=== PATIENT | male | born 1990 | race African-American/Black ===

== ENCOUNTER 2018-12-31 15:24 | Emergency (ER) | payer OTHER ==
--- NOTE | 2018-12-31 18:03 | EDM.PDOC ---
ED HPI GENERAL MEDICAL PROBLEM - General Chief Complaint: Head Injury Stated Complaint: FELL 15 FT AT WORK Time Seen by Provider: 12/31/18 17:47 Source of Information: Reports: Patient, Other (Manager Meeting) History Limitations: Reports: No Limitations - History of Present Illness INITIAL COMMENTS - FREE TEXT/NARRATIVE: Mr. Champion is a pleasant 28-year-old man with no past medical or surgical history , who states that he was standing next to a hill, when the ground gave way, causing him to fall 10 feet straight down, then another roll another 15 feet downhill. He was on the job at the time. When he initially fell, he landed on his back and struck the back of his head, but he states that there was no loss of consciousness. He states that he was wearing a hard hat, but it fell off when he fell. He reports pain to the posterior aspect of his head and to his bilateral scapulae. The patient did not take any jznh-vsh-ksssnal or home remedies prior to coming to the ED. The patient does not have a PCP. - Related Data Allergies Allergy/AdvReac Type Severity Reaction Status Date / Time No Known Allergies Allergy Verified 12/31/18 15:36 Past Medical History - Past Health History Medical/Surgical History: Denies Medical/Surgical History Social & Family History - Tobacco Use Smoking Status *Q: Never Smoker - Alcohol Use Alcohol Use History: No - Recreational Drug Use Recreational Drug Use: No - Living Situation & Occupation Living situation: Reports: Single, Alone Occupation: Employed (lamination technician/call center recruiter) ED ROS GENERAL - Review of Systems Review Of Systems: ROS reveals no pertinent complaints other than HPI. ED EXAM, HEAD INJURY - Physical Exam Exam: See Below Exam Limited By: No Limitations General Appearance: Alert, WD/WN, No Apparent Distress Head: Atraumatic (No visible abnormality to the posterior scalp, such as swelling, abrasion, or laceration, however, the patient reports some tenderness to palpation), Normocephalic Eyes: Bilateral Eye: EOMI, Normal Inspection, PERRL Ears: Normal External Exam, Normal Canal, Hearing Grossly Normal, Normal TMs Nose: Normal Inspection, Normal Mucousa, No Blood Throat/Mouth: Normal Inspection, Normal Lips, Normal Teeth, Normal Gums, Normal Oropharynx, Normal Voice, No Airway Compromise Neck: Non-Tender, Full Range of Motion, Normal Alignment, Normal Inspection Respiratory: No Respiratory Distress, Lungs Clear, Normal Breath Sounds, No Accessory Muscle Use, Chest Non-Tender Cardiovascular: Normal Peripheral Pulses, Regular Rate, Rhythm, No Edema, No Gallop, No JVD, No Murmur, No Rub GI/Abdominal Exam: Normal Bowel Sounds, Soft, Non-Tender, No Organomegaly, No Distention, No Abnormal Bruit, No Mass (Male) Exam: Deferred Rectal (Males) Exam: Deferred Back Exam: Full Range of Motion, Paraspinal Tenderness (Upper back, with no visible abnormality, such as swelling, erythema, ecchymosis, or abrasion) Extremities: Normal Inspection, Normal Range of Motion, No Pedal Edema, Normal Capillary Refill Neurologic: cosmetology instructor II-XII nml As Tested, No Motor/Sensory Deficits, Alert, Oriented x 3 Skin: Normal Color, Warm/Dry Course - Vital Signs Last Recorded V/S: Last Vital Signs Temp 36.8 C 12/31/18 17:45 Pulse 56 L 12/31/18 17:45 Resp 16 12/31/18 17:45 BP 121/69 12/31/18 17:45 Pulse Ox 93 L 12/31/18 17:45 - Re-Assessments/Exams Free Text/Narrative Re-Assessment/Exam: 12/31/18 18:02 The patient complains of some tenderness to his posterior scalp, however, no physical abnormality was found on examination. As his neurologic examination is completely normal, a CT scan of his head is not indicated. Similarly, the patient has some tenderness to the parascapular musculature bilaterally, but no visible injury was found. The patient appears to have some contusions, but no significant injury. I'm recommending he take [id number] ibuprofen as needed for discomfort. Departure - Departure Time of Disposition: 18:03 Disposition: Home, Self-Care 01 Condition: Good Clinical Impression: Contusion of scalp, Contusion of back - Discharge Information *PRESCRIPTION DRUG MONITORING PROGRAM REVIEWED*: Not Applicable *COPY OF PRESCRIPTION DRUG MONITORING REPORT IN PATIENT ERIK: Not Applicable Instructions: Contusion, [id number] Referrals: PCP,None [Primary Care Provider] - Forms: ED Department Discharge Additional Instructions: You were seen in the emergency room after falling a significant distance down a hill, at work. On examination, no physical injuries were found, however, you have likely contused (bruised) the back of your head and your upper back. We recommend that you take [id number] ibuprofen, 2-3 tablets (400-600 mg) every 8 hours, with food as needed for discomfort. You will likely be more sore tomorrow, however, it is important that you stay active. Do not just lie in bed. If any other problems, please do not hesitate to return to the ER.
== END 2018-12-31 18:10 | disposition home or self-care (01) ==
LOC: JD.ED 15:24
DX: S00.03XA Contusion of scalp, initial encounter (principal); S20.222A Contusion of left back wall of thorax, initial encounter; S20.221A Contusion of right back wall of thorax, initial encounter; W17.89XA Other fall from one level to another, initial encounter; Y99.0 Civilian activity done for income or pay
CPT/HCPCS: 99282; 99283